=== PATIENT | female | born 1950 | race Caucasian/White ===

== ENCOUNTER → 2019-03-14 | Outpatient (CLI) | payer MEDICARE, OTHER ==
[~2019-03-14] MED LIST: ACIDOPHILUS1 EAC3 PO; ADVIL100 M2 PO; ANTIHISTAMINE PO; AZITHROMYCIN 2250 MG PO; CALCIUM PO; COLACE 100 MG100 MG; DOCUSATE SODIU100 MG; FOSAMAX 70 MG T70 M1 PO; HYDROCODON-ACE1 EAC7; HYDROCODONE-AP1 EA10 PO; LOVENOX; METAMUCIL PAC1 UDPK1; MIRALAX255 GM; MOM; MULTIVITAMINS PO; OMEGA 3 PO; OXYCONTIN10 M1; OXYIR5 MG; ROXICODONE5 M1; TYLENOL EX-STR500 M2 PO; VICODIN 5-5001 EACH; VITAMIN D35000 UNI1 PO; VITAMIN E400 UNIT PO; XARELTO10 M1
== END ==
LOC: M.RAD 11:07
DX: Z12.31 Encounter for screening mammogram for malignant neoplasm of breast (principal)

== ENCOUNTER → 2020-04-04 | Outpatient (CLI) | payer MEDICARE, OTHER | LOC: M.RAD 13:40 | PROVIDERS: ATTEND Family Medicine | DX: Z12.31 Encounter for screening mammogram for malignant neoplasm of breast (principal) ==

== ENCOUNTER 2020-08-01 02:10 | Inpatient (IN) | payer MEDICARE, OTHER ==
[2020-08-01] VITALS (16 sets, daily range): BP systolic 97–155; BP diastolic 49–88
[~2020-08-01] VITALS: Ht 160 cm; Wt 102.5 kg
[2020-08-01 02:26] LABS: URINE BILIRUBIN NEGATIVE (Negative); URINE BLOOD TRACE (Negative); URINE CLARITY CLEAR; URINE COLOR YELLOW; URINE GLUCOSE-RANDOM NEGATIVE (Negative); URINE KETONES NEGATIVE (Negative); URINE LEUKOCYTES-REFLEX 3+ (Negative); URINE NITRITE-REFLEX NEGATIVE (Negative); URINE PROTEIN NEGATIVE (Negative); URINE UROBILINOGEN 0.2 E.U./dl (0.2-1.0)
[2020-08-01 02:35] LABS: SQUAMOUS 4-10 Moderate /LPF (0-3)
[2020-08-01] MEDS ORDERED: TYLENOL325 M1 PO (02:35)
[2020-08-01 02:36] LABS: URINE WBC-REFLEX >25 Many /HPF (0-5); WBC CASTS 0-3 /LPF
[2020-08-01] MEDS ORDERED: FLORANEX TABLE1 EACH PO (02:36)
[2020-08-01 02:37] LABS: CRYSTALS None Seen /LPF (None Seen); URINE RBC 3-10 Few /HPF (0-2)
[2020-08-01] MEDS ORDERED: CHOLECALCIFEROL1 GM PO (02:37)
[2020-08-01 02:38] LABS: WBC CLUMPS Few (None Seen)
[2020-08-01] MEDS ORDERED: OMEGA DHA92 MG PO (02:39)
[2020-08-01] MEDS ORDERED: JOINT HEALTH T1 EACH PO (02:41)
[2020-08-01] MEDS ORDERED: IBU600 MG PO (02:41)
[2020-08-01] MEDS ORDERED: [UNRECOGNIZED DRUG - OTHER] (02:42)
[2020-08-01] MEDS ORDERED: SUPER THERAVIT1 EACH PO (02:42)
[2020-08-01 02:43] LABS: ABSOLUTE EOSINOPHILS 0.2 thou/uL (0.0-0.7); ABSOLUTE LYMPHOCYTES 3.2 thou/uL (0.8-5.3); ABSOLUTE NEUTROPHILS 5.6 thou/uL (1.6-8.1); BASOPHILS 0.4 %; EOSINOPHILS 2.2 %; HEMATOCRIT 38.8 % (37.0-47.0); LYMPHOCYTES 32.2 %; MCH 30.8 pg (26.0-34.0); MCHC 33.6 g/dL (28.0-37.0); MCV 91.5 fL (80.0-100.0); MONOCYTES 9.7 %; MPV 7.6 fl. (7.2-11.1); NUCLEATED RBCS 0 /100WBC; PLATELET COUNT* 227 thou/uL (150-400); POLYS 55.5 %; RBC 4.24 mil/uL (4.20-5.00); RDW-CV 12.8 % (10.5-14.5); WBC 10.1 thou/uL (4.0-11.0)
[2020-08-01] MEDS ORDERED: TOPAMAX100 MG PO (02:43)
[2020-08-01 02:47] LABS: CALCIUM 9.1 mg/dL (8.5-10.1)
[2020-08-01 02:51] LABS: APTT 24.5 Seconds (25.0-31.3); INR 0.9
[2020-08-01 02:58] LABS: ALBUMIN 3.6 g/dL (3.4-5.0); TOTAL BILIRUBIN 0.4 mg/dL (<0.1-1.0); TOTAL PROTEIN 6.8 g/dL (6.4-8.2)
[2020-08-01 09:13] LABS: ALBUMIN 3.3 g/dL (3.4-5.0); ALKALINE PHOSPHATASE 74 U/L (46-116); ANION GAP 8 mmol/L (7-16); BUN 17 mg/dL (7-18); CALCIUM 8.9 mg/dL (8.5-10.1); CHLORIDE 108 mmol/L (98-107); CO2 25 mmol/L (21-32); CREATININE 0.7 mg/dL (0.6-1.3); GLUCOSE 98 mg/dL (70-99); SGOT 15 U/L (15-37); SGPT 22 U/L (30-65); SODIUM 141 mmol/L (136-145); TOTAL BILIRUBIN 0.4 mg/dL (<0.1-1.0); TOTAL PROTEIN 6.4 g/dL (6.4-8.2)
--- NOTE | 2020-08-01 10:23 | EKG ---
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 : 1950 Requested By: Richard Blevins Order Number: [id number] MD: Antione Terrell Measurements Intervals [place] Rate: 78 P: 43 OK: 145 QRS: -12 QRSD: 96 T: 28 QT: 374 QTc: 426 Interpretive Statements Sinus rhythm artifact noted Borderline T abnormalities, anterior leads Compared to ECG 03/16/2012 09:23:08 T-wave abnormality now present Electronically Signed On 08-01-2020 10:23:43 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
--- NOTE | 2020-08-01 13:47 | 2DMMODE ---
[place] [address] 2 D/M-MODE ECHOCARDIOGRAM Name: CLSARATH LEONILA Room: [facility] ADM IN Mukund.Xiomara.#: [id number] Admission: 08/01/20 Attend Phys: Radha Escobar MD Discharge: Date of : 54 Date of Service: 08/01/20 1346 Report #: [id number] THIS REPORT FOR: cc: Opal Akhtar MD, Elizabeth MD Blick,Antione Gustafson MD [facility] ~ ADDENDUM APPROVED REPORT Study performed: 08/01/2020 11:39:07 EXAM: Comprehensive 2D, Doppler, color-flow Echocardiogram, and bubble study Patient Location: In-Patient Room #: 002 Status: routine BSA: 2.01 HR: 56 bpm BP: 113/58 mmHg Rhythm: NSR Other Information Study Quality: Good Indications Arrhythmia CVA/TIA Bradycardia Echo Enhancing Agent Indication: Rule out Shunt Agent(s) / Amount(s) Used: Agitated Saline 10 cc 2D Dimensions IVSd: 9.39 (7-11mm) LVOT Diam: 20.61 (18-24mm) LVDd: 52.40 mm PWd: 9.33 (7-11mm) Ascending Ao: 35.18 (22-36mm) LVDs: 34.04 (25-40mm) Aortic Root: 30.46 mm Volumes Left Atrial Volume (Systole) LA ESV Index: 25.50 mL/m2 Aortic Valve AoV Peak Piyush.: 1.38 m/s [address] [address] 2 D/M-MODE ECHOCARDIOGRAM Name: SARATH SMALLWOOD Room: [address] IN [facility]#: [id number] Admission: 08/01/20 Attend Phys: Radha Escobar MD Discharge: Date of : 54 Date of Service: 08/01/20 1346 Report #: [id number] Peak Gr.: 7.56 mmHg LVOT Max P.38 mmHg AO Mean Gr.: 3.88 mmHg LVOT Mean P.59 mmHg LVOT Max V: 0.92 m/s AO V2 VTI: 30.07 cm LVOT Mean V: 0.58 m/s NATHANIEL (VTI): 2.27 cm2 LVOT V1 VTI: 20.47 cm Mitral Valve E/A Ratio: 0.96 MV Decel. Time: 250.70 ms MV E Max Piyush.: 0.55 m/s MV PHT: 72.70 ms MVA (PHT): 3.03 cm2 TDI E/Lateral E': 5.50 E/Medial E': 5.00 Medial E' Piyush.: 0.11 m/s Lateral E' Piyush.: 0.10 m/s Pulmonary Valve PV Peak Piyush.: 0.96 m/s PV Peak Gr.: 3.66 mmHg Tricuspid Valve RAP Estimate: 5.00 mmHg TR Peak Gr.: 22.72 mmHg RVSP: 27.00 mmHg PA Pressure: 27.00 mmHg Left Ventricle The left ventricle is normal size. There is normal LV segmental wall motion. There is normal left ventricular wall thickness. Left ventricular systolic function is normal. The left ventricular ejection fraction is within the normal range. LVEF is 55-60%. The left ventricular diastolic function is normal. Right Ventricle The right ventricle is normal size. The right ventricular systolic function is normal. Atria The left atrium size is normal. The interatrial septum is intact with no evidence for an atrial septal defect. The right atrium size is normal. Aortic Valve The aortic valve is normal in structure. No aortic regurgitation is present. There is [place] [address] 2 D/M-MODE ECHOCARDIOGRAM Name: SARATH SMALLWOOD Room: [address] ADM IN M.R.#: [id number] Admission: 08/01/20 Attend Phys: Radha Escobar MD Discharge: Date of : 54 Date of Service: 08/01/20 1346 Report #: [id number] Mitral Valve The mitral valve is normal in structure. There is trace mitral valve regurgitation noted. No evidence of mitral valve stenosis. Tricuspid Valve The tricuspid valve is normal in structure. Mild tricuspid regurgitation. No pulmonary hypertension. Pulmonic Valve The pulmonary valve is normal in structure. Trace pulmonic regurgitation. Great Vessels The aortic root is normal in size. IVC is not well visualized. Pericardium There is no pericardial effusion. <Conclusion> LVEF is 55-60%. The interatrial septum is intact with no evidence for an atrial septal defect. <ELECTRONICALLY SIGNED> By: Antione Terrell MD, FACC 08/01/20 1346 1346 1346 Antione Terrell MD, FACC /INF
--- NOTE | 2020-08-01 14:07 | EKG ---
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1950 Requested By: Charles Oneil Order Number: [id number] Reading MD: Antione Terrell Measurements Intervals [place] Rate: 57 P: 40 NC: 144 QRS: 4 QRSD: 97 T: 27 QT: 452 QTc: 440 Interpretive Statements Sinus bradycardia Borderline T abnormalities, anterior leads Compared to ECG 08/01/2020 02:30:31 rate has slowed Electronically Signed On 08-01-2020 14:07:21 INTERLOCKER by Antione Terrell [email or web address] <ELECTRONICALLY SIGNED> By: Antione Terrell MD, [facility] 08/01/20 1407 1116 1116 Antione Terrell MD, [facility] /EPI
--- NOTE | 2020-08-01 14:17 | CON ---
[address] [address] CONSULTATION Name: SARATH SMALLWOOD Room: [address] IN M.R.#: [id number] Admission: 08/01/20 Attend Phys: Radha Escobar MD Discharge: Date of : 54 Report #: [id number] THIS REPORT FOR: cc: Opal Akhtar MD, Elizabeth MD ~ Antione Terrell MD [facility] DATE OF SERVICE: 08/01/2020 CARDIOLOGY CONSULTATION HISTORY OF PRESENT ILLNESS: The patient is a 70-year-old white female who I was asked to see in the hospital today after she was noted to be bradycardic. The patient has no previous history of heart disease. She has had no previous cardiac evaluation. She states that she was doing well until last night, she was walking through the house and she had problems with balance. She has fallen to either side. She had to hold on to the avila to keep from falling. She denied any blurred vision, loss of speech, paralysis of an arm or leg. She did not fall. The symptoms persisted, so her brought her to the hospital today. She was admitted for further evaluation and treatment. She was noted to be bradycardic and Cardiology consultation requested. She denies history of chest pain. She does get short of breath if she over exerts herself. She has no history of palpitations or syncope or edema. PAST MEDICAL HISTORY: She had tonsillectomy, , knee surgery. MEDICATIONS: Her only medications include a pill for a familial tremor. ALLERGIES: She has no known drug allergies. FAMILY HISTORY: Her brother had bypass surgery. SOCIAL HISTORY: She is . She and her live in [place]. No smoking. Rarely uses alcohol. REVIEW OF SYSTEMS: No history of stroke, asthma, liver disease, kidney disease, bleeding. She had a skin cancer removed in the past. No chronic skin condition. PHYSICAL EXAMINATION: GENERAL: Revealed a middle-aged female, who appeared in no distress. VITAL SIGNS: She had a blood pressure of 110/60, pulse 60. She is afebrile. HEENT: She was anicteric. Conjunctivae pink. Mucous membranes are moist. NECK: Veins nondistended. No carotid bruits. Neck supple. CHEST: [place] [address] CONSULTATION Name: SARATH SMALWLOOD Room: [address]#: [id number] Admission: 08/01/20 Attend Phys: Radha Escobar MD Discharge: Date of : 54 Report #: [id number] CARDIOVASCULAR: Regular rate and rhythm without murmur. ABDOMEN: Soft. EXTREMITIES: Had no edema. Dorsalis pedis pulse 1+ bilaterally. SKIN: Cool and dry. NEUROLOGIC: Nonfocal. RADIOLOGICAL DATA: Her ECG on admission showed sinus bradycardia, nonspecific ST-segment changes. LABORATORY DATA: Sodium 141, creatinine 0.7. Liver function studies were normal. Troponin 0.06. BNP 36. White blood cell count 10.1, hemoglobin 13. X-RAYS: The patient had a CT scan of the head that showed a possible artifact in the temporal area. Possible right carotid stenosis, no bleed was noted. Her chest x-ray showed mild increased interstitial markings. IMPRESSION AND RECOMMENDATIONS: 1. Sinus bradycardia. I would check thyroid function studies. I would avoid beta-blockers. 2. Stroke. The patient has been seen by Neurology. 3. Familial tremor. <ELECTRONICALLY SIGNED> By: Antione Terrell MD, FACC 08/01/20 1417 1136 [email or web address] Terrell MD, FACC /nt
[2020-08-01 15:04] LABS: CHOLESTEROL 167 mg/dL (<200); HDL CHOLESTEROL 42 mg/dL (>40); LDL CHOLESTEROL 89 mg/dL (<100); SERUM ASSESSMENT Clear; TRIGLYCERIDE 180 mg/dL (<150); VLDL 36 mg/dL (<40)
[2020-08-02] VITALS: BP 125/73
[2020-08-02 03:36] VITALS: BP 114/60
[2020-08-02 04:27] LABS: ABSOLUTE EOSINOPHILS 0.2 thou/uL (0.0-0.7); ABSOLUTE LYMPHOCYTES 2.6 thou/uL (0.8-5.3); ABSOLUTE MONOCYTES 0.8 thou/uL (0.0-1.2); ABSOLUTE NEUTROPHILS 4.1 thou/uL (1.6-8.1); BASOPHILS 0.5 %; EOSINOPHILS 3.1 %; HEMATOCRIT 35.5 % (37.0-47.0); HEMOGLOBIN 11.9 gm/dL (12.0-15.0); LYMPHOCYTES 33.3 %; MCH 30.4 pg (26.0-34.0); MCHC 33.4 g/dL (28.0-37.0); MCV 91.1 fL (80.0-100.0); MONOCYTES 10.5 %; MPV 7.7 fl. (7.2-11.1); NUCLEATED RBCS 0 /100WBC; PLATELET COUNT* 198 thou/uL (150-400); POLYS 52.6 %; RDW-CV 13.1 % (10.5-14.5); WBC 7.9 thou/uL (4.0-11.0)
[2020-08-02 04:49] LABS: ALBUMIN 3.1 g/dL (3.4-5.0); CALCIUM 8.1 mg/dL (8.5-10.1); CREATININE 0.8 mg/dL (0.6-1.3); POTASSIUM 3.9 mmol/L (3.5-5.1); TOTAL BILIRUBIN 0.4 mg/dL (<0.1-1.0); TOTAL PROTEIN 6.1 g/dL (6.4-8.2)
[2020-08-02] MEDS ORDERED: ASA81BEC PO (07:42)
[2020-08-02] MEDS ORDERED: MACROBID 100 M100 M1 PO (07:42)
--- NOTE | 2020-08-02 11:10 | EKG ---
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1950 Requested By: Antione Terrell Order Number: [id number] Reading MD: Antione Terrell Measurements Intervals [place] Rate: 67 P: 46 MT: 144 QRS: -6 QRSD: 95 T: 34 QT: 386 QTc: 408 Interpretive Statements Sinus rhythm Compared to ECG 08/01/2020 11:16:10 Sinus bradycardia no longer present T-wave abnormality no longer present Electronically Signed On 08-02-2020 11:10:39 DIGITAL ENGINEER by Antione Terrell [email or web address] <ELECTRONICALLY SIGNED> By: Antione Terrell MD, [facility] 08/02/20 1110 0809 0809 Antione Terrell MD, [facility] /EPI
[2020-08-02 11:43] VITALS: BP 114/60
[2020-08-02 12:33] VITALS: BP 146/77
[2020-08-02 20:33] LABS: GLYCOHEMOGLOBIN (HGB A1C) 5.7 % (4.8-5.6)
--- NOTE | 2020-08-03 10:55 | CON ---
[address] [address] CONSULTATION Name: SARATH SMALLWOOD Room: [address] IN M.R.#: [id number] Admission: 08/01/20 Attend Phys: Radha Escobar MD Discharge: 08/02/20 Date of : 54 Report #: [id number] THIS REPORT FOR: cc: Opal Akhtar MD, Elizabeth MD ~ Leonides Singh MD DATE OF SERVICE: 08/01/2020 HISTORY OF PRESENT ILLNESS: This is a 70-year-old female patient who was evaluated by me for an episode of what she described as TIA. She said she was ataxic. She had difficulty coordinating, although her motor strength was okay. She did not feel dizzy and she was conscious during this episode. The symptoms have completely resolved. She never had this kind of symptom before. REVIEW OF SYSTEMS: A 14-point review of system was carried out. She had artificial knees, but she says that she is otherwise pretty healthy. 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 She had C-sections in the past. She denies any eye, ENT, cardiac, respiratory, GI, , musculoskeletal, constitutional, dermatological, hematological, psychiatric, throat, allergic symptom associated with present symptomatology. PAST MEDICAL HISTORY: Negative for these kind of spell. FAMILY HISTORY: Positive for an atrial fibrillation in mother. SOCIAL HISTORY: She drinks occasionally. She does not smoke. PHYSICAL EXAMINATION: NEUROLOGIC: She is alert. She is responsive. She can follow simple commands. Her speech, concentration, fund of knowledge and memory is at her baseline. Cranial nerve examination 2-12 was unremarkable. I did not see any nystagmus or hemianopsia. There is no meningeal sign in this patient. Her reflexes are present. Her strength looks symmetrical. Awxkxe-rf-jcfi looks unremarkable. Tone looks symmetrical. Could not look at the fundus. NECK: There is no carotid bruit. There is no thyroid mass. CARDIAC: Examination does not appear to be showing any atrial fibrillation. LUNGS: No respiratory difficulty was noticed. EXTREMITIES: There is no edema. Pulses are palpable. GENERAL: She is a reasonably well-developed individual. She has unremarkable hearing or vision. VITAL SIGNS: Blood pressure is 125/68, respirations 21, pulse is 79. She has seen Cardiology and they have noticed some bradycardia [place] [address] CONSULTATION Name: NOHEMIIVETTSanaSARATH LEONILA Room: [address]#: [id number] Admission: 08/01/20 Attend Phys: Radha Escobar MD Discharge: 08/02/20 Date of : 54 Report #: [id number] She had an MRI of the brain, which was unremarkable. She had a CT stroke protocol which is CT angiogram of the head and neck as well as perfusion that showed mild disease, but no hemodynamically significant stenosis or anything which can explain the patient's symptoms. IMPRESSION: This patient's symptoms were unusual. I am not certain about the etiology of her symptoms, but I do not believe any further neurological workup is indicated. I think she should have systemic workup to exclude any systemic pathology at this stage and she should be on 1 aspirin daily. If it can be a full aspirin, if she can tolerate that or it can be 81 mg aspirin. Otherwise, I do not believe any further neurological workup is needed at the moment and we will suggest concentrating on systemic workup. If she has more symptoms suggestive of neurological etiology, then please call us back and we will be happy to see her back. Otherwise, we will sign off. Thank you very much for this referral and if you have any question, please feel free to contact me. <ELECTRONICALLY SIGNED> By: Leonides Singh MD 08/03/20 1055 1847 1942Pdez Singh MD /nt
== END 2020-08-02 12:35 | disposition home or self-care (01) | DRG 640 ==
LOC: M.ERS 02:10 → M.2W 04:15 → M.ICU 04:15 → M.TBA-ER 04:15 → M.ICU 04:30 → M.2W 18:06
PROVIDERS: Family Medicine; Internal Medicine; ADMIT Family Medicine; ATTEND Family Medicine
DX: E86.0 Dehydration (principal); G93.41 Metabolic encephalopathy; N39.0 Urinary tract infection, site not specified; Z20.822 Contact with and (suspected) exposure to COVID-19; M19.09 Primary osteoarthritis, other specified site; G25.0 Essential tremor; R73.9 Hyperglycemia, unspecified; Z96.653 Presence of artificial knee joint, bilateral; Z87.39 Personal history of other diseases of the musculoskeletal system and connective tissue; Z88.8 Allergy status to other drugs, medicaments and biological substances; Z82.49 Family history of ischemic heart disease and other diseases of the circulatory system; Z91.040 Latex allergy status; Z79.82 Long term (current) use of aspirin; Z79.899 Other long term (current) drug therapy; Z86.73 Personal history of transient ischemic attack (TIA), and cerebral infarction without residual deficits

== ENCOUNTER 2021-07-03 08:41 | Emergency (ER) | payer MEDICARE, OTHER ==
[~2021-07-03] VITALS: Ht 160 cm; Wt 98.4 kg
[~2021-07-03 08:41] MED LIST changes: +ASA81BEC PO; +CHOLECALCIFEROL1 GM PO; +FLORANEX TABLE1 EACH PO; +IBU600 MG PO; +JOINT HEALTH T1 EACH PO; +MACROBID 100 M100 M1 PO; +OMEGA DHA92 MG PO; +SUPER THERAVIT1 EACH PO; +TOPAMAX100 MG PO; +TYLENOL325 M1 PO; +[UNRECOGNIZED DRUG - OTHER]
[2021-07-03 09:08] LABS: URINE BILIRUBIN NEGATIVE (Negative); URINE BLOOD TRACE (Negative); URINE CLARITY CLEAR; URINE COLOR YELLOW; URINE GLUCOSE-RANDOM NEGATIVE (Negative); URINE KETONES NEGATIVE (Negative); URINE LEUKOCYTES-REFLEX 1+ (Negative); URINE NITRITE-REFLEX NEGATIVE (Negative); URINE PROTEIN NEGATIVE (Negative); URINE SPECIFIC GRAVITY 1.025 (1.005-1.030); URINE UROBILINOGEN 0.2 E.U./dl (0.2-1.0)
[2021-07-03 09:28] LABS: SQUAMOUS 0-3 Few /LPF (0-3); URINE RBC None Seen /HPF (0-2); URINE WBC-REFLEX 6-15 Few /HPF (0-5)
[2021-07-03 09:29] LABS: BACTERIA-REFLEX None Seen /HPF (None Seen); CASTS None Seen /LPF (None Seen); CRYSTALS None Seen /LPF (None Seen)
[2021-07-03] MEDS ORDERED: HYDROCODON-ACE1 EAC7 PO (10:01)
[2021-07-03] MEDS ORDERED: MACROBID 100 M100 M1 PO (10:01)
[2021-07-03 10:10] VITALS: BP 141/70
== END 2021-07-03 10:16 | disposition home or self-care (01) ==
LOC: M.ERS 08:41
PROVIDERS: Family Medicine
DX: N39.0 Urinary tract infection, site not specified (principal); M47.9 Spondylosis, unspecified; Z98.890 Other specified postprocedural states; Z96.653 Presence of artificial knee joint, bilateral; Z79.899 Other long term (current) drug therapy; Z91.040 Latex allergy status; Z91.048 Other nonmedicinal substance allergy status